=== PATIENT | male | born 1975 ===

== ENCOUNTER → 2018-07-25 | Outpatient (CLI) | payer BC ==
--- NOTE | 2018-07-25 11:50 | Diagnostic Imaging Report ---
Indication: Abdominal pain Technique: Lomeli-scale and duplex images of the upper abdomen were obtained. Doppler interrogation of the pancreatic and hepatic vessels Comparison: none Findings: Gallbladder is unremarkable, without stones, wall thickening, nor pericholecystic fluid. Sonographic Ochoa's sign is negative. Common bile duct measures 4 mm in diameter. No intrahepatic biliary ductal dilatation. Liver demonstrates diffusely increased echogenicity, consistent with diffuse hepatocellular disease, most likely fatty change. Areas of focal sparing are seen in the usual location adjacent to the gallbladder fossa. No other focal abnormality Portal vein and hepatic veins are patent. Pancreas is unremarkable. Spleen is mildly enlarged, measuring 14.1 cm long axis dimension Left kidney measures 11.9 cm in length. Right kidney measures 11.5 cm length. Both kidneys demonstrate normal echogenicity. There is no hydronephrosis. No focal abnormality . Abdominal aorta is partially obscured by bowel gas, visualized portions are non-aneurysmal . Impression: Liver demonstrates diffusely increased echogenicity, consistent with diffuse hepatocellular disease, most likely fatty change. Splenomegaly Negative for gallstones or dilated bile ducts Note inability to visualize portions of the abdominal aorta
== END | disposition home or self-care (01) ==
LOC: ULS 10:14
DX: R10.9 Unspecified abdominal pain (principal); R16.1 Splenomegaly, not elsewhere classified
CPT/HCPCS: 76700